=== PATIENT | male | born 1980 | race Caucasian/White ===

== ENCOUNTER 2023-01-18 21:41 | Emergency (ER) | payer BC, SELFPAY ==
[2023-01-18 21:51] VITALS: BP 155/102; PULSE 100; RESP 18; TEMP 36.4; O2SAT 98; BMI 32.3
--- NOTE | 2023-01-18 21:55 | ED.GENADULT ---
HPI - General Adult General Time Seen by Provider: 21:56 Date Seen: 01/18/23 Chief complaint: Ear/Nose/Throat Problem Stated complaint: Very sore throat Time Seen by Provider: 01/18/23 21:53 Source: patient Mode of arrival: ambulatory Limitations: no limitations History of Present Illness HPI narrative: 43-year-old male who comes in today with sore throat since yesterday. Predominantly on the right side. No fevers or chills, no nausea vomiting. No difficulty breathing, has pain with swallowing but no difficulty swallowing. Has been taking ibuprofen for this and was started on amoxicillin today as well. Comes in today due to concern for continued pain. Related Data Home Medications Medication Instructions Recorded Confirmed ondansetron HCl 4 mg tablet 4 mg PO Q8H 08/31/22 01/10/23 testosterone enanthate 100 mg/0.5 100 mg subcut QWEEK 08/31/22 01/10/23 mL subcutaneous auto-injector (Xyosted) Previous Rx's Medication Instructions Recorded omeprazole 40 mg capsule,delayed 40 mg PO DAILY #90 caps 10/13/22 release Allergies Allergy/AdvReac Type Severity Reaction Status Date / Time prochlorperazine Allergy Mild dyskinesia Verified 01/18/23 21:45 prednisone AdvReac Unknown hyper,aggit Verified 01/18/23 21:45 ated PFSH PFSH Surgical History (Updated 09/28/22 @ 13:07 by Constance Lynch (PATIENT ACCOUNTING REPRESENTATIVE), PATIENT ACCOUNTING REPRESENTATIVE) History of ankle surgery History of cholecystectomy History of elbow surgery History of endoscopy Status post vasectomy Family History (Updated 08/29/22 @ 19:45 by Aurelia Chiang) Father Back pain Mother Diverticulitis Social History (Updated 08/31/22 @ 14:25 by Yony Poole MD) Narrative: has 2 children, , non smoker. Patient works as a aboriginal home school liaison officer. Problems where you live: pests, such as bugs, ants, or mice Smoking Status: Never smoker Exam Narrative: Exam Narrative: General: Well-developed and well-nourished, no acute distress Head: Atraumatic and normocephalic Eyes: Pupils are equal reactive, extraocular motions intact, conjunctiva clear ENT: Bilateral tonsillar erythema neck is stay, slight prominence of the right tonsil but no soft palate asymmetry or uvular deviation. Neck: No midline cervical tenderness, full spontaneous range of motion the neck, trachea midline, right anterior cervical adenopathy Heart: Regular rate and rhythm no murmurs or thrills Lungs: Clear to auscultation bilaterally without wheezes or crackles Abdomen: Soft, nontender, nondistended with active bowel sounds Musculoskeletal: No tenderness, deformity, or edema Neurologic: Awake, alert, and oriented x3, no gross focal neurologic deficits, cranial nerves intact as tested Psych: Mood and affect are appropriate Skin: No rashes Const: Vital Signs, click to edit/add: Vital Signs - 24 hr 01/18/23 21:51 Temperature 97.5 F L Pulse Rate [Pulse Oximeter] 100 Respiratory Rate 18 Blood Pressure [Ri ght Upper Arm] 155/102 H Pulse Oximetry 98 Oxygen Delivery Me thod Room Air Course Course Hospital Course: Patient seen and examined, prior records are reviewed. Patient presents today with predominantly right-sided sore throat. He has some anterior cervical adenopathy on the right hand the right tonsil is slightly prominent with exudate, both tonsils have erythema. No soft palate swelling or uvula deviation. No swallowing or breathing difficulties. Upper airway is widely patent. No hoarse voice or hot potato voice to suggest epiglottitis or vocal cord edema. Consider CT scan soft tissue neck but symptoms are consistent with early peritonsillar abscess or phlegmon, minimal tonsillar asymmetry with no trismus, phlegmon most likely, small abscess not clinically excluded but will also would not change treatment course. Patient will be given Decadron and Toradol, also be given a dose of Rocephin IM. He has amoxicillin at home which he should continue. He has a history of being hyper anxious with steroid and so will not discharge with Decadron at this time. Follow-up with Dr. Mcintosh, ENT in 24-48 hours. Vital Signs Vital signs: Initial Vital Signs Temperature 97.5 F L 01/18/23 21:51 Temperature Source Temporal Artery Scan 01/18/23 21:51 Pulse Rate 100 01/18/23 21:51 Pulse Rhythm 01/18/23 21:51 Pulse Strength 3+ Normal 01/18/23 21:51 Respiratory Rate 18 01/18/23 21:51 Blood Pressure 155/102 H 01/18/23 21:51 Blood Pressure Mean 119 01/18/23 21:51 Blood Pressure Position Sitting 01/18/23 21:51 Pulse Oximetry 98 01/18/23 21:51 Oxygen Delivery Method 01/18/23 21:51 Vital Signs Temperature 97.5 F L 01/18/23 21:51 Pulse Rate 100 01/18/23 21:51 Respiratory Rate 18 01/18/23 21:51 Blood Pressure 155/102 H 01/18/23 21:51 Pulse Oximetry 98 01/18/23 21:51 Oxygen Delivery Method 01/18/23 21:51 Temperature 97.5 F L 01/18/23 21:51 Pulse Rate 100 01/18/23 21:51 Respiratory Rate 18 01/18/23 21:51 Blood Pressure 155/102 H 01/18/23 21:51 Pulse Oximetry 98 01/18/23 21:51 Oxygen Delivery Method 01/18/23 21:51 Discharge Plan Discharge Prescriptions: No Action ondansetron HCl 4 mg tablet 4 mg PO Q8H Xyosted 100 mg/0.5 mL auto-injector 100 mg subcut QWEEK omeprazole 40 mg capsule,delayed release(DR/EC) 40 mg PO DAILY Qty: 90 0RF Follow Up/Referrals: Familia Ramsay MD [Primary Care Provider] -
[2023-01-18] MEDS: dexAMETHasone 10 MG/ML inj IM (22:10)
[2023-01-18] MEDS: cefTRIAXone 1 GM VIAL IM (22:11)
[2023-01-18] MEDS: KETOROLAC 30 MG/ML inj IM (22:11)
[2023-01-18 22:41] LABS: Strep A DNA Probe* NOT DETECTED (Not Detectd)
== END 2023-01-18 22:16 | disposition home or self-care (01) ==
LOC: ED 22:06
PROVIDERS: Emergency Provider Family Medicine
DX: J36 Peritonsillar abscess (principal)
CPT/HCPCS: 87651; 96372; 99283; 99284; J0696; J1100; J1885

== ENCOUNTER 2023-02-15 19:39 | Outpatient (CLI) | payer BC, SELFPAY ==
--- NOTE | 2023-02-21 12:51 | W.PM.SLEEP ---
Sleep Study Details Details Interpreting Provider: Arturo Date of Sleep Study: 02/15/23 Sleep Study Details: STUDY TYPE:? Home ? BMI:? Not recorded ORDERING PROVIDER:? Arturo INDICATION:? Concerns about sleep apnea ? SLEEP SUMMARY:? 470.5 minutes monitored RESPIRATORY SUMMARY:? AHI 26, supine 65.4, right lateral 4.6 Low oxygen 89 0.2% of study oxygen less than 90% Snoring 13.4% PERIODIC LIMB MOVEMENTS OF SLEEP:? Not recorded CARDIAC:? Range 46-93, mean 59 IMPRESSION:? Moderate obstructive sleep apnea with supine position dependency. RECOMMENDATION: A trial of positional therapy may be indicated as the patient's AHI was within normal limits on the right side. Otherwise CPAP AutoSet 4-17 versus dental appliance would be the recommended treatment options.
== END 2023-02-15 19:40 | disposition home or self-care (01) ==
LOC: SLEEP 19:39
PROVIDERS: Visit Provider Otolaryngology
DX: G47.33 Obstructive sleep apnea (adult) (pediatric) (principal)
CPT/HCPCS: 95806

== ENCOUNTER 2023-10-18 23:00 | Emergency (ER) | payer BC, SELFPAY ==
[2023-10-18 23:09] VITALS: BP 145/78; PULSE 95; RESP 20; TEMP 37.8; O2SAT 99; BMI 31.4
--- NOTE | 2023-10-18 23:15 | CRLHL7_ITS ---
For Patients: As a result of the Cures Act, medical imaging exams and procedure reports are released immediately into your electronic medical record. You may view this report before your referring provider. If you have questions, please contact your health care provider. INDICATION: elbow pain, mild swelling RIGTH ELBOW No fracture, dislocation, or destructive lesion of bone is seen. No arthritic changes or soft tissue abnormalities are identified. IMPRESSION: Negative right elbow radiographs. SYD GILLESPIE MD [facility] Dictated by: Elliot Gillespie MD @ 10/19/2023 00:34:45 (Electronically Signed)
--- NOTE | 2023-10-18 23:16 | ED.UPPEXIN ---
HPI - Extremity Injury (Upper) General Date Seen: 10/18/23 Chief Complaint: Extremity Pain/Injury, Upper Stated Complaint: pain, fever Time Seen by Provider: 10/18/23 23:15 Source: patient Mode of arrival: ambulatory Limitations: no limitations History of Present Illness HPI narrative: Patient is a 43-year-old male presents emergency department for fever right elbow pain. States about 9 days ago while doing a drill at work he was try to rest got a right posterior going initially. He tried can and after that he felt a fall right arm spasm he was unable to initially remove it. Since then he has been having consistent right elbow and arm pain. He soft in orthopedics provider on Monday and received an x-ray that he says was normal. He is scheduled for MRI in 2 days. He noticed he had a fever of 101.4 at home so came to the emergency department disease also been feeling clammy. He is concerned his elbow might be infected. He is able to make a fist but there is some discomfort when he does that. Denies any other injuries. Pain does radiate up his arm to her shoulder. Denies weakness, numbness, fevers, chills, diarrhea, constipation, headache, vision changes, sick contacts Related Data Home Medications Medication Instructions Recorded Confirmed ondansetron HCl 4 mg tablet 4 mg PO Q8H 08/31/22 10/18/23 testosterone enanthate 100 mg/0.5 100 mg subcut QWEEK 08/31/22 10/18/23 mL subcutaneous auto-injector (Xyosted) cyclobenzaprine 10 mg tablet 10 mg PO 3XD 10/18/23 10/18/23 Previous Rx's Medication Instructions Recorded omeprazole 40 mg capsule,delayed 40 mg PO DAILY #90 caps 10/13/22 release celecoxib 100 mg capsule (Celebrex) 100 mg PO BID #60 caps 10/16/23 gabapentin 300 mg capsule 300 mg PO TID #21 caps 10/19/23 Allergies Allergy/AdvReac Type Severity Reaction Status Date / Time prochlorperazine Allergy Mild dyskinesia Verified 10/18/23 23:11 prednisone AdvReac Intermediate hyper,aggit Verified 10/18/23 23:11 ated Review of Systems Status of ROS: Reports: 10 or more systems reviewed and unremarkable except as noted in History and below [facility] Surgical History Status post vasectomy ?Z98.52 - Vasectomy status (ICD-10) History of endoscopy ?Z98.890 - Other specified postprocedural states (ICD-10) History of elbow surgery ?Z98.890 - Other specified postprocedural states (ICD-10) History of cholecystectomy ?Z90.49 - Acquired absence of other specified parts of digestive tract (ICD-10) History of ankle surgery ?Z98.890 - Other specified postprocedural states (ICD-10) Family History (Updated 08/29/22 @ 19:45 by Aurelia Chiang) Father Back pain Mother Diverticulitis Social History (Updated 08/31/22 @ 14:25 by Yony Poole MD) Narrative: has 2 children, , non smoker. Patient works as a uniform patrol police officer. Problems where you live: pests, such as bugs, ants, or mice Smoking Status: Never smoker How often do you have a drink containing alcohol: never How often do you have six or more drinks on one occasion: Never AUDIT-C Alcohol total score: 0 Non-prescribed substance use: denies use Exam Narrative: Exam Narrative: Const: Well-nourished, Well-developed, in mild distress Eyes: PERRL, no conjunctival injection, and symmetrical lids HENT: Atraumatic external nose and ears. Moist mucous membranes. Neck: Symmetric, trachea midline, No thyromegaly. CVS: RRR, No murmurs or gallops. Peripheral pulses 2+ and equal in all extremities RESP: Unlabored respiratory effort. Clear to auscultation bilaterally. GI: Nontender/Nondistended, No rebound or guarding. MSK:Extremities w/o deformity, tender right elbow with mild swelling but no erythema or warmth noted. Tenderness does radiate up the right arm. Skin: Warm, Dry. No rashes or lesions. Neuro: Normal Muscle tone, No focal neurological deficits. Psych: Awake, Alert, & Oriented x3. Appropriate mood and affect. Const: Vital Signs, click to edit/add: Vital Signs - 24 hr 10/18/23 23:09 Temperature 100.0 F H Pulse Rate [Right Pulse Oximeter] 95 Respiratory Rate 20 Blood Pressure [Ri ght Upper Arm] 145/78 H Pulse Oximetry 99 Oxygen Delivery Me thod Room Air Course Vital Signs Vital signs: Initial Vital Signs Temperature 100.0 F H 10/18/23 23:09 Temperature Source Temporal Artery Scan 10/18/23 23:09 Pulse Rate 95 10/18/23 23:09 Respiratory Rate 20 10/18/23 23:09 Blood Pressure 145/78 H 10/18/23 23:09 Blood Pressure Mean 100 10/18/23 23:09 Blood Pressure Position Sitting 10/18/23 23:09 Pulse Oximetry 99 10/18/23 23:09 Oxygen Delivery Method Room Air 10/18/23 23:09 Vital Signs Temperature 100.0 F H 10/18/23 23:09 Pulse Rate 95 10/18/23 23:09 Respiratory Rate 20 10/18/23 23:09 Blood Pressure 145/78 H 10/18/23 23:09 Pulse Oximetry 99 10/18/23 23:09 Oxygen Delivery Method Room Air 10/18/23 23:09 Temperature 100.0 F H 10/18/23 23:09 Pulse Rate 95 10/18/23 23:09 Respiratory Rate 20 10/18/23 23:09 Blood Pressure 145/78 H 10/18/23 23:09 Pulse Oximetry 99 10/18/23 23:09 Oxygen Delivery Method Room Air 10/18/23 23:09 Medications Administered Medications: Generic Name Dose Route Start Last Admin Trade Name Freq PRN Reason Stop Dose Admin Ketorolac Tromethamine 30 mg 10/18/23 23:15 10/18/23 23:24 Ketorolac 30 Mg/Ml Inj IM 10/18/23 23:16 30 mg ONCE ONE Administration MDM - Extremity Injury (Upper) MDM Narrative Medical decision making narrative: Patient is a 43-year-old male presenting for right elbow pain any fever. Looking at the elbow there is no clear signs of infection or infected bursitis. It is tender to palpation but this seems more musculoskeletal or nerve related than actual infection. While he does have fever this could be viral. COVID says fluids as RSV test was ordered. Does state elbow pain scan were so he will re-x-ray the elbow this see there is any new findings. CBC was ordered to look for signs of an elevated white count which was normal. X-ray was reviewed by myself not see any acute signs of injuries. COVID/flu/rsv tests were negative. Patient is discharged home and was given gabapentin for his pain. Lab Data Labs: Lab Results 10/18/23 10/18/23 Range/Units 23:15 23:24 WBC 9.14 (4.50-11.00) K/uL RBC 5.36 (4.30-5.90) m/uL Hgb 16.6 (13.5-17.5) gm/dL Hct 48.0 (37.0-53.0) % MCV 90 (80-100) fL MCH 31 (26-34) pg MCHC 35 (32-36) gm/dL RDW Coeff of Zoey 12.4 (11.5-15.5) % Plt Count 191 (140-440) K/uL Neut % (Auto) 83.9 H (42.0-72.0) % Lymph % (Auto) 7.1 L (20-44) % Harnett % (Auto) 6.1 (0.0-11.0) % Eos % (Auto) 2.2 (0.0-7.0) % Baso % (Auto) 0.3 (0.0-3.0) % Neut # (Auto) 7.70 H (1.7-7.0) K/uL Lymph # (Auto) 0.60 L (0.90-2.90) K/uL Harnett # (Auto) 0.60 (0.00-0.90) K/UL Eos # (Auto) 0.20 (0.00-0.50) K/uL Baso # (Auto) 0.03 (0.00-0.30) K/uL Abs Immat Gran (auto) 0.04 (0.00-0.30) K/uL Imm/Tot Granulo (auto) 0.4 % SARS-CoV-2 (PCR) Negative SARS-CoV-2 (Negative) Influenza Type A (PCR) Negative PCR FLU A (Negative) Influenza Type B (PCR) Negative PCR FLU B (Negative) RSV (PCR) Negative PCR RSV (Negative) Discharge Plan Discharge Clinical Impression: Elbow pain Qualifiers: Laterality: right Qualified Code(s): M25.521 - Pain in right elbow Patient Disposition: Home, Self-Care Condition: Stable Instructions: Arm Pain (ED) Additional Instructions: New fevers likely an unrelated virus. Your elbow does not appear to be infected at this time. We will call you with results of the elbow x-ray if there is any concerning findings. Take medication as prescribed. She can continue to take the NSAIDs Prescriptions: New gabapentin 300 mg capsule 300 mg PO TID Qty: 21 0RF No Action ondansetron HCl 4 mg tablet 4 mg PO Q8H Xyosted 100 mg/0.5 mL auto-injector 100 mg subcut QWEEK cyclobenzaprine 10 mg tablet 10 mg PO 3XD omeprazole 40 mg capsule,delayed release(DR/EC) 40 mg PO DAILY Qty: 90 0RF celecoxib [Celebrex] 100 mg capsule 100 mg PO BID Qty: 60 3RF Follow Up/Referrals: Provider,Not a Local [Primary Care Provider] - Stand Alone Forms: [employer] Info Instructions
[2023-10-18] MEDS: KETOROLAC 30 MG/ML inj IM (23:24)
[2023-10-18 23:43] LABS: Basophils Absolute Auto 0.03 K/uL (0.00-0.30); Basophils Percent Auto 0.3 % (0.0-3.0); Eosinophils Percent Auto 2.2 % (0.0-7.0); Hemoglobin* 16.6 gm/dL (13.5-17.5); Immature Granulocytes Abs Auto 0.04 K/uL (0.00-0.30); Immature Granulocytes Pct Auto 0.4 %; Lymphocytes Percent Auto 7.1 % (20-44); Mean Corpuscular HGB Conc 35 gm/dL (32-36); Mean Corpuscular Hemoglobin 31 pg (26-34); Mean Corpuscular Volume 90 fL (80-100); Monocytes Percent Auto 6.1 % (0.0-11.0); Neutrophils Percent Auto 83.9 % (42.0-72.0); Platelet Count* 191 K/uL (140-440); RDW Coefficient of Variation % 12.4 % (11.5-15.5); Red Blood Count 5.36 m/uL (4.30-5.90); White Blood Count* 9.14 K/uL (4.50-11.00)
[2023-10-18 23:45] LABS: Slide Review Reflex No
[2023-10-19 00:14] LABS: PCR FLU A Negative PCR FLU A (Negative); PCR FLU B Negative PCR FLU B (Negative); PCR RSV Negative PCR RSV (Negative)
[2023-10-19 00:15] LABS: SARS PCR* Negative SARS-CoV-2 (Negative)
[2023-10-19 00:39] VITALS: TEMP 37.3
[2023-10-19] MEDS: GABAPENTIN 600 MG TABLET PO (00:39)
[2023-10-19 00:40] VITALS: BP 132/68; PULSE 89; RESP 20; TEMP 37.3; O2SAT 99
[2023-10-19 00:49] VITALS: BP 132/68; PULSE 89; RESP 20; TEMP 37.3
== END 2023-10-19 00:50 | disposition home or self-care (01) ==
PROVIDERS: Emergency Provider Student in an Organized Health Care Education/Training Program
DX: M25.521 Pain in right elbow (principal); X50.0XXA Overexertion from strenuous movement or load, initial encounter
CPT/HCPCS: 36415; 73080; 85025; 87631; 96372; 99282; 99283; 99284; A9270; J1885

== ENCOUNTER 2024-10-17 21:00 | Emergency (ER) | payer BC, SELFPAY ==
[2024-10-17 21:08] VITALS: BP 167/118; PULSE 78; RESP 18; TEMP 37.1; O2SAT 97; BMI 30.7
--- NOTE | 2024-10-17 21:46 | ED_ITS ---
HPI - General Adult General Date Seen: 10/17/24 Chief complaint: Eye Problems Stated complaint: L eye swollen/red/discharge Time Seen by Provider: 10/17/24 21:16 Source: patient Mode of arrival: ambulatory Limitations: no limitations History of Present Illness HPI narrative: Patient is a 44-year-old male, generally healthy, who presents with eye irritation and discharge that started few hours ago. He does not do any welding or metal grinding, does not were contacts, no injury to the eye. He says his vision is bothered by the fact that the eye is so goopy. No fevers or other complaints. Related Data Home Medications ?Medication ?Instructions ?Recorded ?Confirmed ondansetron HCl 4 mg tablet 4 mg PO Q8H 08/31/22 10/17/24 testosterone enanthate 100 mg/0.5 100 mg subcut QWEEK 08/31/22 10/17/24 mL subcutaneous auto-injector (Xyosted) Previous Rx's ?Medication ?Instructions ?Recorded omeprazole 40 mg capsule,delayed 40 mg PO DAILY #90 caps 10/13/22 release Allergies Allergy/AdvReac Type Severity Reaction Status Date / Time prochlorperazine Allergy Mild dyskinesia Verified 01/30/24 08:18 prednisone AdvReac Intermediate hyper,aggit Verified 01/30/24 08:18 ated Review of Systems Status of ROS: Reports: 6 or more systems reviewed and unremarkable except as noted in History and below [facility] Medical History (Updated 10/17/24 @ 21:28 by Yaima Morrison MD) Osteoarthritis of right ankle ?M19.071 - Primary osteoarthritis, right ankle and foot (ICD-10) Abdominal pain ?R10.9 - Unspecified abdominal pain (ICD-10) Surgical History (Updated 11/02/23 @ 13:37 by Kendal Capellan) Status post vasectomy ?Z98.52 - Vasectomy status (ICD-10) History of endoscopy ?Z98.890 - Other specified postprocedural states (ICD-10) History of elbow surgery (~2019) ?Z98.890 - Other specified postprocedural states (ICD-10) History of cholecystectomy ?Z90.49 - Acquired absence of other specified parts of digestive tract (ICD- 10) History of ankle surgery (09/17/10) ?Z98.890 - Other specified postprocedural states (ICD-10) Family History (Updated 08/29/22 @ 19:45 by Aurelia Chiang) Father Back pain Mother Diverticulitis Social History (Reviewed 01/30/24 @ 08:18 by Kenzie Sosa ~ [facility]) Narrative: has 2 children, , non smoker. Patient works as a police aide. Problems where you live: pests, such as bugs, ants, or mice Smoking Status: Never smoker How often do you have a drink containing alcohol: never How often do you have six or more drinks on one occasion: Never AUDIT-C Alcohol total score: 0 Non-prescribed substance use: denies use Health Related Social Needs: Inadequate housing (Z59.1) Exam Narrative: Exam Narrative: Vital signs reviewed, initial blood pressure elevated. Afebrile. In general, alert, nontoxic male. Head: Normocephalic, atraumatic. Eyes: He has conjunctival injection on the left associated with purulent discharge. No periorbital edema or erythema. Full range of motion is full. ENT: Nares are clear. He has erythema and dullness of the left TM. Right is normal. Throat is normal. Neck: Supple without adenopathy. Heart: Regular rate and rhythm. Lungs: Clear. Const: Vital Signs, click to edit/add: Vital Signs - 24 hr 10/17/24 21:08 10/17/24 21:54 Temperature 98.8 F Pulse Rate [Pulse Oximeter] 78 Respiratory Rate 18 Blood Pressure [Ri ght Upper Arm] 167/118 H 148/98 H Pulse Oximetry 97 Oxygen Delivery Me thod Room Air Documenting provider has reviewed patient's vital signs: yes Course Course ED Course: Symptoms are consistent with otitis media and bacterial conjunctivitis. I recommended treatment with an oral antibiotic, Augmentin prescribed from [facility] Warm compresses, anticipate improvement over the next couple of days. If I is not improving should be seen by his eye clinic in the next couple of days. His blood pressure was elevated on arrival, I did discuss this with him. He denies any prior history of hypertension. Would recommend recheck with primary doctor in the next few weeks. Return at any time for high fevers, severe headache, periorbital swelling or pain etcetera. Vital Signs Vital signs: Initial Vital Signs Temperature 98.8 F 11/21/24 21:08 Temperature Source Temporal Artery Scan 10/17/24 21:08 Pulse Rate 78 10/17/24 21:08 Respiratory Rate 18 10/17/24 21:08 Blood Pressure 167/118 H 10/17/24 21:08 Blood Pressure Mean 134 H 10/17/24 21:08 Blood Pressure Position Sitting 10/17/24 21:08 Pulse Oximetry 97 10/17/24 21:08 Oxygen Delivery Method Room Air 10/17/24 21:08 Vital Signs Temperature 98.8 F 10/17/24 21:08 Pulse Rate 78 10/17/24 21:08 Respiratory Rate 18 10/17/24 21:08 Blood Pressure 167/118 H 10/17/24 21:08 Pulse Oximetry 97 10/17/24 21:08 Oxygen Delivery Method Room Air 10/17/24 21:08 Temperature 98.8 F 10/17/24 21:08 Pulse Rate 78 10/17/24 21:08 Respiratory Rate 18 10/17/24 21:08 Blood Pressure 148/98 H 10/17/24 21:54 Pulse Oximetry 97 10/17/24 21:08 Oxygen Delivery Method Room Air 10/17/24 21:08 Discharge Plan Discharge Clinical Impression: Acute bacterial conjunctivitis, Otitis media Patient Disposition: Home, Self-Care Condition: Stable Instructions: Ear Infection (ED), Conjunctivitis (ED) Additional Instructions: Augmentin as prescribed. This will cover both here ear infection and eye infection. If I pain worsens, you develop increasing swelling or pain around your eye, have high fevers, severe headache, vomiting or other worsening, return for re-evaluation. Ibuprofen or Tylenol as needed. Follow-up with your eye doctor if eye is not improving over the next couple of days. Initial blood pressure measurement was elevated today, this is something to keep an eye on, recheck with primary doctor sometime in the next few weeks. Activity Level: No Restrictions Discharge Diet: Regular Prescriptions: No Action ondansetron HCl 4 mg tablet 4 mg PO Q8H Xyosted 100 mg/0.5 mL auto-injector 100 mg subcut QWEEK omeprazole 40 mg capsule,delayed release(DR/EC) 40 mg PO DAILY Qty: 90 0RF Follow Up/Referrals: Provider,Not a Local [Primary Care Provider] - Stand Alone Forms: [facility] Info Instructions
[2024-10-17 21:54] VITALS: BP 148/98
== END 2024-10-17 21:54 | disposition home or self-care (01) ==
PROVIDERS: Emergency Provider Emergency Medicine
DX: H10.022 Other mucopurulent conjunctivitis, left eye (principal); H66.92 Otitis media, unspecified, left ear
CPT/HCPCS: 99283

== ENCOUNTER 2025-01-03 13:38 | Outpatient (CLI) | payer BC, SELFPAY ==
--- NOTE | 2025-01-03 14:00 | CRLHL7_ITS ---
For Patients: As a result of the Century Cures Act, medical imaging exams and procedure reports are released immediately into your electronic medical record. You may view this report before your referring provider. If you have questions, please contact your health care provider. Indication: Pain in left lower leg Technique: DVT ultrasound of the left lower extremity. Grayscale and color Doppler imaging utilized. Compression and augmentation as clinically warranted. Comparison: None Findings: All vessels are grossly compressible without evidence of filling defect to suggest DVT. No superficial thrombosis appreciated. Soft tissues are unremarkable. Varicose veins noted. Impression: No significant sonographic abnormality appreciated. Dictated by Yonathan Pantoja MD @ 01/04/2025 8:49:23 PM (Electronically Signed)
== END 2025-01-03 13:39 | disposition home or self-care (01) ==
LOC: US 13:39
PROVIDERS: Visit Provider Registered Nurse
DX: M79.662 Pain in left lower leg (principal)
CPT/HCPCS: 93971